=== PATIENT | male | born 1950 | race Caucasian/White ===

== ENCOUNTER 2017-02-21 11:29 | Emergency (ER) | payer OTHER ==
[2017-02-21 12:37] VITALS: BP 131/71
== END 2017-02-21 12:37 | disposition home or self-care (01) ==
LOC: ED 11:29
DX: B86 Scabies (principal)

== ENCOUNTER 2019-01-17 13:00 | Inpatient (IN) | payer OTHER ==
[~2019-01-17] VITALS: Ht 165.1 cm; Wt 114.3 kg
[2019-01-17 13:10] VITALS: Ht 165.1 cm; Wt 114.3 kg
--- NOTE | 2019-01-17 13:50 | NUR ---
PT IN H6 A/AX4 PLACED ONTO GUERNEY TILL BED AVAIL, AFTER LABS WERE DRAWN WE MOVED HIM TO ROOM 7 FOR FULL WORK UP PT REMAINS A/AX4 ON CM, DR FRANKS AT BEDSIDE
[2019-01-17 14:11] LABS: PLATELET COUNT 379 x10^3mcL (130-400)
--- NOTE | 2019-01-17 14:17 | NUR ---
DR FRANKS AT BEDSIDE FOR MD SILVERIO.
--- NOTE | 2019-01-17 14:23 | NUR ---
REPORT GIVEN TO DEV Suarez RN TO ASSUME CARE OF PT.
[2019-01-17 14:24] LABS: RED CELL DISTRIBUTION WIDTH 28.5 % (11.5-14.5)
[2019-01-17 14:36] LABS: ALBUMIN 3.5 g/dL (3.4-5.0); ALKALINE PHOSPHATASE 120 U/L (46-116); ALT/SGPT 18 U/L (16-63); AST/SGOT 18 U/L (15-37); CALCIUM 7.5 mg/dL (8.5-10.1); CARBON DIOXIDE 23.1 mmol/L (21-32); CHLORIDE SERUM 108 mmol/L (98-107); CREATININE SERUM 1.2 mg/dL (0.7-1.3); GFR1 > 60 mL/min; GLUCOSE SERUM 185 mg/dL (74-106); SODIUM SERUM 142 mmol/L (136-145)
[2019-01-17 14:38] LABS: TOTAL PROTEIN, SERUM 8.3 g/dL (6.4-8.2)
[2019-01-17 14:47] LABS: POTASSIUM SERUM 3.7 mmol/L (3.5-5.1)
[2019-01-17 14:48] LABS: UA SPECIFIC GRAVITY 1.025 (1.005-1.035); microscopic required? YES; urine erythrocyte TRACE (NEGATIVE)
[2019-01-17 15:00] LABS: BAND NEUTROPHIL 0 % (0-10); BASOPHIL 0 % (0-2); MONOCYTE 2 % (0-7); SEGMENTED NEUTROPHILS 77 % (37-75); rbc morphology (normal/abnorm) ABNORMAL (NORMAL)
[2019-01-17 15:04] LABS: AMPHETAMINE QUAL UR NONE DETECTED (See below)
[2019-01-17 15:16] LABS: CHOLESTEROL 64 mg/dL (<200); HDL CHOLESTEROL 20 mg/dL (40-60); LIPASE 121 IU/L (73-393); T4(THYROXINE) 8.8 ug/dL (4.7-13.3)
--- NOTE | 2019-01-17 15:41 | NUR ---
PER BLOOD BANKL BLOOD WILL BE READY IN APPROX 10 MINS.
--- NOTE | 2019-01-17 15:49 | NUR ---
PER DR FRANKS, PT'S PENDING BLOOD ADMIN TO BE COMPLETED UPON ADMISSTION TO [facility], PRIMARY RN DEV MADE AWARE.
--- NOTE | 2019-01-17 15:53 | NUR ---
PER DR FRANKS ADMITTING DR TO SIGN BLOOD TRANSFUSION CONSENT.
[2019-01-17] MEDS ORDERED: SYNTHROID25 MCG PO (16:14)
--- NOTE | 2019-01-17 16:28 | NUR ---
PT STANDING AT BEDSIDE FOR URINAL USE
--- NOTE | 2019-01-17 16:40 | NUR ---
REPORT GIVEN TO JOSÉ MIGUEL TRUJILLO RN
[2019-01-17 17:39] LABS: RED BLOOD CELLS 1.53 M/mm3 (4.52-5.90)
[2019-01-17 17:40] LABS: CHOLESTEROL/HDL RATIO 3.4
[2019-01-17 17:45] LABS: FREE T4 1.22 ng/dL (0.76-1.46); FREE THYROXINE INDEX 3.4 ug/dL (1.4-4.5); T4(THYROXINE) 9.4 ug/dL (4.7-13.3)
[2019-01-17 17:46] VITALS: BP 145/75
[2019-01-17 17:53] LABS: IRON 205 ug/dL (65-170); TOTAL IRON BINDING CAPACITY 217 ug/dL (250-450)
--- NOTE | 2019-01-17 17:56 | NUR ---
RECEIVED PT FROM ER, PT ADMIT FOR SEVERE ANEMIA, PT IS A/O X4, VERBAL RESPONSIVE, LUNG SOUND CLEAR BILATERAL, NO COUGH, DENY ANY SOB, PT REFUSED TO USE NASAL CANNAL AT THIS TIME, PT STATE I FEELT FINE. PO2 95% IN ROOM AIR, DENY ANY CHEST PAIN OR DISCOMFORT, BOWEL SOUND PRESENT ALL 4 QUADRANTS, NO DISTENTION, NO TENDER. PEDAL PULSE PRESENT BOTH FEET, WEAK, +3 EDEMA BLE. IV AT LEFT AC, AND RIGHT AC, NO LEAKING, NO INFILTRAITON. ALL ADLS ASSIST, ALL NEED MET, CALL LIGHT IN REACH, WILL CONTINUE TO MONITOR.
[2019-01-17 18:13] LABS: T3 TOTAL 0.79 ng/mL
--- NOTE | 2019-01-17 18:30 | NUR ---
RECEIVED PT FROM [facility] NURSE. PT SITTING AT BEDSIDE. PT DENIED DIZZINESS, WEAKNESS. PT REPORTED FREQUENTLY URGENCY WITH SMALL AMOUNT URINE. PT BREATHING ON RA, EVEN, UNLABORED, BUT PT REPORTED SOB INCREASING WITH ACTIVITY. O2 2L VIA NC APPLIED NEEDED. PT IS AWARE ABOUT BLOOD TRANSFUSION PLAN, BLOOD TRANSFUSION CONSENT SIGNED, STILL WAITING FOR TRANSFUSION ORDER. BLE SWELLING +3 EDEMA NOTED. IV SITE RAC / LAC SALINE LOCK AT THIS TIME. WILL ENOOSE PT'S CARE TO RECEIVING NURSE.
--- NOTE | 2019-01-17 19:36 | NUR ---
PT'S CARE IS ENDORSED TO RECEIVING NURSE. PT IS IN BATHROOM AND STATING HAVING TROUBLE TO URINATE. RECEIVING NURSE AWARE ABOUT IT AND WILL CONTINUE PT'S CARE.
[2019-01-17 20:20] VITALS: BP 145/75
--- NOTE | 2019-01-17 21:03 | NUR ---
PATIENT RECEIVED AWAKE, ALERT, ORIENTED X4. RESPIRATION EVEN AND UNLABORED, ON ROOM AIR. SALINE LOCK TO LT AC AND RT AC PATENT AND INTACT. C/O DIFFICULTY ON URINATION. DR ANDRADE MADE AWARE PERSONALLY. LBM 01/17/19. MILD GENERALIZED WEAKNESS. SCAB TO LT LE, MAGED. WILL CONTINUE TO MONITOR.
[2019-01-17 21:22] VITALS: BP 139/71
--- NOTE | 2019-01-18 00:40 | NUR ---
STARTED 1ST UNIT OF PRBC. PRE TRANSFUSION VITAL SIGNS FOLLOWS TEMP 99.6, BP 121/64, HR 80, RR 20, O2 SAT 95% WILL CONTINUE TO MONITOR FOR ANY TRANSFUSION REACTION.
--- NOTE | 2019-01-18 03:50 | NUR ---
COMPLETED 1ST UNIT OF PRBC. POST TRANSFUSION VITAL SIGNS FOLLOWS TEMP 98.7 HR 76, BP 132/69, RR 20, O2 SAT 98% NO ADVERSE REACTION NOTED. WILL CONTINUE TO MONITOR.
--- NOTE | 2019-01-18 04:10 | NUR ---
STARTED 2ND UNIT OF PRBC. PRETRANSFUSION VITAL SIGNS FOLLOWS TEMP 98.7, HR 76, BP 132/69, RR 20, O2 SAT 98% WILL MONITOR FOR ADVERSE REACTION.
[2019-01-18 05:30] VITALS: BP 116/66
--- NOTE | 2019-01-18 06:52 | NUR ---
PATIENT RESTING IN BED. RESPIRATION EVEN AND UNLABORED, ON ROOM AIR. ONGOING 2ND UNIT OF PRBC. IV SITE NO SIGN OF INFILTRATION. ASSISTED WITH NEEDS. SAFETY OBSERVED. PLACED BED IN THE LOWEST POSITION. PLACED CALL LIGHT WITHIN REACH AT ALL TIMES.
[2019-01-18 06:57] LABS: PLATELET COUNT 368 x10^3mcL (130-400)
[2019-01-18 07:12] LABS: CALCIUM 7.6 mg/dL (8.5-10.1); CARBON DIOXIDE 24.6 mmol/L (21-32); CHLORIDE SERUM 110 mmol/L (98-107); CREATININE SERUM 1.2 mg/dL (0.7-1.3); GFR1 > 60 mL/min; GLUCOSE SERUM 134 mg/dL (74-106); MAGNESIUM 2.1 mg/dL (1.8-2.4); SODIUM SERUM 143 mmol/L (136-145)
--- NOTE | 2019-01-18 07:16 | NUR ---
2ND UNIT OF PRBC COMPLETED. LATEST VITAL SIGNS BP 122/68, HR 69, RR 20, TEMP 98.6, O2 SAT 98% NO ADVERSE REACTION NOTED. WILL CONTINUE TO MONITOR.
[2019-01-18 07:41] LABS: RED CELL DISTRIBUTION WIDTH 24.5 % (11.5-14.5)
--- NOTE | 2019-01-18 09:15 | NUR ---
SPOKE TO DR. CHRIS PERTAINING TO LOW H/H COUNT CBC WAS DRAWN PRIOR TO COMPLETEION OF BLOOD TRANSFUSION THIS MORNING. DR. CHRIS MADE AWARE AND ORDERED REDRAW CBC.
[2019-01-18 09:31] VITALS: BP 149/69
--- NOTE | 2019-01-18 09:44 | NUR ---
A&OX4, FOLLOWS COMMANDS. DENIES CHEST PAIN. LUNG SOUNDS CTA BILATERALLY, NO SOB, ON RA, O2 SAT 96%. PERIPHERAL PULSES PALPABLE, +3 BILATERAL LOWER EXTREMITIES. NORMOACTIVE BOWEL SOUNDS, LAST BM 01/17. STRUGGLING WITH VOIDING DUE TO HISTORY OF ENLARGED PROSTATE. GENERALIZED WEAKNESS. LAC IV SITE CDI. RAC IV SITE CDI. COOPERATES WELL.
[2019-01-18 10:49] LABS: rbc morphology (normal/abnorm) ABNORMAL (NORMAL)
[2019-01-18 11:15] LABS: ATYPICAL LYMPH 1 %; BAND NEUTROPHIL 0 % (0-10); BASOPHIL 0 % (0-2); MONOCYTE 4 % (0-7); SEGMENTED NEUTROPHILS 33 % (37-75)
[2019-01-18 11:28] LABS: PLATELET COUNT 384 x10^3mcL (130-400)
--- NOTE | 2019-01-18 12:15 | NUR ---
DR. CHRIS AND MEDICAL TEAM IN FOR DAILY ROUNDS. MD MADE AWARE OF LATEST H+H 6.08/30. PER DR. CHRIS WILL ORDER ONE MORE UNIT OF PRBC TO BE TRANSFUSED. ALSO REMINDED OF PT'S C/O URINARY RETENTION. MD AND TEAM NOTIFIED PT OF US BLADDER/KIDNEY RESULTS. STATED THEY WOULD CONTACT UROLOGIST AND START PT ON FLOMAX. AWAITING FURTHER ORDERS.
[2019-01-18 12:22] LABS: rbc morphology (normal/abnorm) ABNORMAL (NORMAL); tear drop cell (dacryocyte) 1+
[2019-01-18 13:24] LABS: ATYPICAL LYMPH 0 %; BAND NEUTROPHIL 0 % (0-10); BASOPHIL 0 % (0-2); MONOCYTE 17.3 % (0-7); SEGMENTED NEUTROPHILS 76.5 % (37-75)
[2019-01-18 13:25] LABS: PLATELET MORPHOLOGY N
--- NOTE | 2019-01-18 14:37 | NUR ---
STARTED 1 UNIT PRBC ORDERED. VITAL SIGNS: T 98.6, HR 78, RR 16, BP 117/58, 02 96%. STARTED INFUSING AT 60 ML/HR TO LEFT AC IV. REVIEWED SIGNS AND SYMPTOMS OF ADVERSE REACTION IN PATIENT. PATIENT IS SLEEPY, AROUSABLE AT THIS TIME. WILL REMAIN AT BEDSIDE FOR 15 MINUTES TO MONITOR.
--- NOTE | 2019-01-18 14:54 | NUR ---
AFTER 15 MINS OF TRANSFUSION, NO ADVERSE EFFECTS NOTED. VITAL SIGNS: TEMP 98.2, HR 82, BP 126/61, RR 16, O2 94%. LEFT AC SITE CDI, AND NO SIGNS OF INFILTRATION. PATIENT IS AWAKE AND ISNTRUCTED TO CALL FOR ANY ADVERSE REACTIONS. CALL LIGHT WITHIN REACH.
--- NOTE | 2019-01-18 17:00 | NUR ---
NURSING CO-SIGN THE DOCUMENTATION ENTERED BY THE IP HAS BEEN REVIEWED. REVIEWED/CO-SIGNED BY: Amisha Carty DOCUMENTATION DONE BY: Sugey MEDINA
--- NOTE | 2019-01-18 17:30 | NUR ---
ONE UNIT PRBC COMPLETED. VS: TEMP 97.9, HR 74, BP 124/51, RR 14, O2 SAT 98%. NO ADVERSE REACTIONS, TOLERATED TRANSFUSION WELL. PATIENT REFUSED LASIX POST TRANSFUSION AT THIS TIME. PATIENT A&O, DOES NOT COMPLAIN OF DISCOMFORT, AND NO RESPIRATORY CHANGES. CALL LIGHT WITHIN REACH.
--- NOTE | 2019-01-18 18:31 | NUR ---
A&OX4, FOLLOWS COMMANDS. DENIES CHEST PAIN. PERIPHERAL PULSES PALPABLE, WITH NONPITTING EDEMA BLE. LUNG SOUNDS REMAIN CTA BILATERALLY, ON RA, O2 SATS 98%. NORMOACTIVE BOWEL SOUNDS X4. REMAINS HAVING DIFFICULTY URINATING. RECEIVED FLOMAX TODAY. RECEIVED A BLOOD TRANSFUSION PER MD ORDER FOR H&H OF 6.08/30. PATIENT VITAL SIGNS REMAIN STABLE PRE, DURING AND POST TRANSFUSION. PATIENT COOPERATES WELL AND DENIES ANY PAIN OR DISCOMFORT.
--- NOTE | 2019-01-18 19:59 | NUR ---
PATIENT RECEIVED AWAKE, ALERT, ORIENTED X4 IN BED. RESPIRATION EVEN AND UNLABORED, ON ROOM AIR. ONGOING NS AT TKO ON THE RT AC AND SALINE LOCK AT THE LT AC. +3 EDEMA TO BLE. LBM 01/17/19. C/O DIFFICULTY URINATION. GENERALIZED WEAKNESS. SCAB TO LLE. DENIES PAIN AT THIS TIME. WILL CONTINUE TO MONITOR.
[2019-01-18 21:19] VITALS: BP 128/65
[2019-01-19 04:56] VITALS: BP 122/59
--- NOTE | 2019-01-19 05:53 | NUR ---
PATIENT RESTING IN BED. RESPIRATION EVEN AND UNLABORED, ON ROOM AIR. IV SITE TO RT ANTECUBITAL AND LT ANTECUBITAL AREA PATENT AND INTACT. NO SIGN OF HYPO/HYPERGLYCEMIA. ASSISTED WITH NEEDS. SAFETY OBSERVED. PLACED BED IN THE LOWEST POSITION. PLACED CALL LIGHT WITHIN REACH AT ALL TIMES.
[2019-01-19 06:09] LABS: BASOPHIL % 0.2 % (0-2); PLATELET COUNT 335 x10^3mcL (130-400)
[2019-01-19 06:39] LABS: CALCIUM 8.1 mg/dL (8.5-10.1); CARBON DIOXIDE 26.2 mmol/L (21-32); CREATININE SERUM 1.3 mg/dL (0.7-1.3); MAGNESIUM 2.4 mg/dL (1.8-2.4); PHOSPHOROUS 3.2 mg/dL (2.5-4.9); POTASSIUM SERUM 3.9 mmol/L (3.5-5.1)
[2019-01-19 07:23] LABS: RED CELL DISTRIBUTION WIDTH 22.5 % (11.5-14.5)
--- NOTE | 2019-01-19 07:36 | NUR ---
PT A/A, SITTING UP IN BED. BREATHING EQUAL/UNLABORED ON RA. NO SIGNS OF DISTRESS OR PAIN NOTED. IVF RUNNING AT 5ML/HR. NO REDNESS/ SWELLING TO IV SITES. PT C/O DIFFICULTY URINATING, AWAITING CONSULT. BED IN LOW POSITION, CALL LIGHT IN REACH. FALL/ SAFETY PRECAUTIONS IN PLACE. WILL CONTINUE TO MONITOR
[2019-01-19 08:17] VITALS: BP 131/66
[2019-01-19 09:46] LABS: rbc morphology (normal/abnorm) ABNORMAL (NORMAL)
[2019-01-19 12:14] VITALS: BP 125/63
[2019-01-19 13:27] VITALS: BP 116/48
--- NOTE | 2019-01-19 13:31 | NUR ---
PT BLOOD TRANSFUSION STARTED. NO ACUTE DISTRESS. VSS. WILL CONTINUE TO MONITOR
--- NOTE | 2019-01-19 13:44 | NUR ---
PT DONE WITH FIRST 15 MIN OF TRANSFUSION. PT VSS STABLE WITH NO REACTION NOTED. INCREASED TRASNFUSION TO 100ML/HR. WILL CONTINUE TO MONITOR
--- NOTE | 2019-01-19 14:27 | NUR ---
PHYSICAL THERAPY NOTE ATTEMPTED FOR PHYSICAL THERAPY EVALUATION. PATIENT RECEIVING BLOOD TRANSFUSION. RESIDENT PHYSICIAN AWARE. WILL ATTEMPT EVALUATION TOMORROW 01/20/19.
[2019-01-19 16:23] VITALS: BP 125/64
--- NOTE | 2019-01-19 16:36 | NUR ---
PT BLOOD TRANSFUSION COMPLETE. VSS. NO ADVERESE REACTIONS NOTED. WILL CONTINUE TO MONITOR
--- NOTE | 2019-01-19 18:46 | NUR ---
PT SITTING IN BED, A/A, ORIENTED X 4. BREATHING EQUAL/ UNLABORED ON RA. IVF RUNNING AT 10 ML/HR. NO REDNESS/ SWELLING TO IV SITE. BOCANEGRA FLOWING TO GRAVITY WITH VIRIDIANA URINE. NO C/O PAIN, DISTRESS AT THIS TIME. BED IN LOW POSITION, CALL LIGHT IN REACH. FALL/ SAFETY PRECAUTIONS IN PLACE. WILL ENDORSE TO ON COMING NURSE
[2019-01-19 19:20] VITALS: BP 123/62
--- NOTE | 2019-01-19 19:40 | NUR ---
RECIEVED PT IN NO ACUTE DISTRESS. AOX4. MED SURG. BREATHING E/U ON RA. DENIES SOB. PULSES PALPABLE. EDEMA TO BLE. BOCANEGRA CATHETER DRAINING VIRIDIANA COLOR URINE. INGUINAL HERNIA NOTED. DRY SCAB TO LLE, OTHERWISE SKIN INTACT. DENIES PAIN. IV TO RAC, PATENT. BED IN LOWEST POSITION, 2 SIDE RAILS UP, CALL LIGHT IN REACH. INSTRUCTED TO CALL FOR ASSISTANCE.
--- NOTE | 2019-01-20 01:30 | NUR ---
IV TO RAC LEAKING, D/C INTACT. NEW IV ACCESS ESTABLISHED TO LFA 22G. NO ACUTE DISTRESS NOTED. WILL CONTINUE TO MONITOR.
[2019-01-20 04:38] VITALS: BP 133/65
[2019-01-20 06:30] LABS: CARBON DIOXIDE 24.8 mmol/L (21-32); CHLORIDE SERUM 104 mmol/L (98-107); CREATININE SERUM 1.2 mg/dL (0.7-1.3); GFR1 > 60 mL/min; GLUCOSE SERUM 121 mg/dL (74-106); MAGNESIUM 2.3 mg/dL (1.8-2.4); PHOSPHOROUS 3.6 mg/dL (2.5-4.9); POTASSIUM SERUM 3.6 mmol/L (3.5-5.1); SODIUM SERUM 141 mmol/L (136-145)
--- NOTE | 2019-01-20 07:00 | NUR ---
NO C/O SOB OVERNIGHT. NO ACUTE DISTRESS NOTED. NO ACUTE CHANGES. WILL ENDORSE TO ONCOMING RN.
--- NOTE | 2019-01-20 07:26 | NUR ---
PT SITTING UP IN BED WITH EYES CLOSED. AROUSABLE TO VOICE. BREATHING EQUAL/ UNLABORED ON RA. NO C/O SOB OR PAIN AT THIS TIME. IVF RUNNING AT 10 ML/HR. NO REDNESS/ SWELLING TO IV SITE. BOCANEGRA FLOWING TO GRAVITY WITH VIRIDIANA URINE. BED IN LOW POSITION, CALL LIGHT IN REACH, FALL PRECAUTIONS IN PLACE. WILL CONTINUE TO MONITOR
[2019-01-20 07:38] LABS: BASOPHIL % 0.1 % (0-2); PLATELET COUNT 302 x10^3mcL (130-400)
[2019-01-20 07:52] LABS: RED CELL DISTRIBUTION WIDTH 22.9 % (11.5-14.5)
[2019-01-20 08:40] LABS: rbc morphology (normal/abnorm) ABNORMAL (NORMAL); tear drop cell (dacryocyte) 1+
[2019-01-20 08:53] VITALS: BP 130/63
--- NOTE | 2019-01-20 12:11 | NUR ---
PT SITTING UP IN BED, A/A. BREATHING EQUAL/ UNLABORED ON RA. NO ACUTE DISTRESS/ PAIN AT THIS TIME. IV ABX RUNNING AT 100ML/ HR. NO REDNESS/ SWELLING TO IV SITE. BOCANEGRA FLOWING TO GRAVITY WITH DARK VIRIDIANA URINE. BED IN LOW POSITION, CALL LIGHT IN REACH, SAFETY/ FALL PRECAUTIONS IN PLACE. WILL CONTINUE TO MONITOR
[2019-01-20 16:30] VITALS: BP 138/70
--- NOTE | 2019-01-20 17:19 | NUR ---
OBCANEGRA CARE DONE. BOCANEGRA FLOWING TO GRAVITY WITH VIRIDIANA URINE. WILL CONTINUE TO MONITOR
--- NOTE | 2019-01-20 18:40 | NUR ---
PT SITTING UP IN BED, A/A. BREATHING EQUAL/ UNLABORED ON RA. NO ACUTE DISTRESS/ PAIN AT THIS TIME. IVF RUNNING AT 10 ML/HR. NO REDNESS/ SWELLING TO IV SITE. BOCANEGRA FLOWING TO GRAVITY WITH DARK VIRIDIANA URINE. BED IN LOW POSITION, CALL LIGHT IN REACH, FALL/ SAFETY PRECAUTIONS IN PLACE. WILL ENDORSE TO ON COMING NURSE
--- NOTE | 2019-01-20 19:30 | NUR ---
RECIEVED PT IN NO ACUTE DISTRESS. AOX4. MED SURG. BREATHING E/U ON RA. DENIES SOB. PULSES PALPABLE. EDEMA TO BLE. BOCANEGRA CATHETER DRAINING VIRIDIANA COLOR URINE. INGUINAL HERNIA NOTED. DRY SCAB TO LLE, OTHERWISE SKIN INTACT. DENIES PAIN. IV TO LFA, PATENT. BED IN LOWEST POSITION, 2 SIDE RAILS UP, CALL LIGHT IN REACH. INSTRUCTED TO CALL FOR ASSISTANCE.
[2019-01-20 21:00] VITALS: BP 130/57
--- NOTE | 2019-01-21 02:15 | NUR ---
RESTING WITH EYES CLOSED. BREATHING E/U. NO ACUTE DISTRESS NOTED. WILL CONTINUE TO MONITOR.
[2019-01-21 05:20] VITALS: BP 136/70
[2019-01-21 06:10] LABS: CALCIUM 7.9 mg/dL (8.5-10.1); CARBON DIOXIDE 23.9 mmol/L (21-32); CHLORIDE SERUM 106 mmol/L (98-107); CREATININE SERUM 1.1 mg/dL (0.7-1.3); GFR1 > 60 mL/min; GLUCOSE SERUM 119 mg/dL (74-106); POTASSIUM SERUM 3.9 mmol/L (3.5-5.1); SODIUM SERUM 139 mmol/L (136-145)
[2019-01-21 06:11] LABS: BASOPHIL % 0.3 % (0-2); PLATELET COUNT 280 x10^3mcL (130-400)
[2019-01-21 07:02] LABS: RED CELL DISTRIBUTION WIDTH 21.4 % (11.5-14.5)
[2019-01-21 07:04] LABS: rbc morphology (normal/abnorm) ABNORMAL (NORMAL)
[2019-01-21 07:05] LABS: tear drop cell (dacryocyte) 1+
--- NOTE | 2019-01-21 07:30 | NUR ---
A&OX4, COOPERATES WELL. MED-SURG PATIENT, DENIES CHEST PAIN. PERIPHERAL PULSES PALPABLE, WITH +3 PITTING EDEMA. LUNG SOUNDS CTA BILATERALLY, ON RA, 97%. REMAINS W/ BOCANEGRA CATHETER DRAIINAGE DARK VIRIDIANA URINE. ABLE TO AMBULATE W/ ASSIST. GENERALIZED WEAKNESS. NORMOACTIVE BOWEL SOUNDS X4. SCAB LLE PRESENT, CDI. LFA IV SITE CDI. DENIES ANY PAIN OR DISCOMFORT.
[2019-01-21 08:41] VITALS: BP 121/56
[2019-01-21 16:49] VITALS: BP 124/56
--- NOTE | 2019-01-21 18:56 | NUR ---
PATIENT IS A&0X4. COOPERATES WELL. PATIENT NEEDS HAVE BEEN MET THROUGHOUT THE DAY. REMAINS ON RA W/ NO SIGNS OF APPARENT DISTRESS. BOCANEGRA CATHETER DRAINING OUT DARK VIRIDIANA URINE. PLANS FOR TRANSFER TO SNF.
--- NOTE | 2019-01-21 18:57 | NUR ---
CALLED TO [facility] AND SPOKE W/ KYLEE AND PATIENT BE POSTING CLERK AT 2300.
[2019-01-21 19:05] VITALS: BP 124/56
[2019-01-21] MEDS ORDERED: ZOS3PM IV (19:23)
--- NOTE | 2019-01-21 19:30 | NUR ---
RECIEVED PATIENT AT START OF SHIFT A/O X4. NO SOB ON RA. DENIES PAIN. IV TO LFA INFUSING WITHOUT ERYTHEMA OR INFILTRATION. BOCANEGRA IN PLACE DRAINING BLOOD TINGED URINE. PLAN IS FOR PATIENT TO BE TRANSFERRED TO [facility] AT 2300.
--- NOTE | 2019-01-21 19:55 | NUR ---
CALLED [facility]. SPOKE TO RN REGARDING THE LATE TRANSFER. SHE STATE THE PT IS NOT IN THE SYSTERM, NEED TO TALK TO THEIR CLINICAL RESEARCH SPECIALIST TO CONFIRM AND WILL CALL BACK.
[2019-01-21 21:10] VITALS: BP 130/65
--- NOTE | 2019-01-22 01:30 | NUR ---
PATIENT TRANSFERRED TO [facility] AT THIS TIME. IV TO RIGHT HAND SALINE LOCKED AND PATENT. BOCANEGRA DRAINING BLOOD TINGED URINE. NO SOB OR DISTRESS. NO PAIN. ALL BELONGINGS WITH PATIENT. PATIENT LEFT FLOOR AT THIS TIME.
== END 2019-01-22 01:30 | DRG 177 ==
LOC: ED 13:00 → MU 16:23
PROVIDERS: Emergency Medicine; Family Medicine; ADMIT Internal Medicine
DX: J69.0 Pneumonitis due to inhalation of food and vomit (principal); J96.00 Acute respiratory failure, unspecified whether with hypoxia or hypercapnia; J44.1 Chronic obstructive pulmonary disease with (acute) exacerbation; J90 Pleural effusion, not elsewhere classified; Z68.41 Body mass index [BMI] 40.0-44.9, adult; D64.9 Anemia, unspecified; R33.9 Retention of urine, unspecified; E87.8 Other disorders of electrolyte and fluid balance, not elsewhere classified; E83.51 Hypocalcemia; E05.90 Thyrotoxicosis, unspecified without thyrotoxic crisis or storm
CPT/HCPCS: 76770; 82962; 83880; 84439; 97116-GP; C9113; G0378; G0480; J1815; J1940; J2543; J7030; J7040; J7050; J7620; P9016; Q0092; Q0163

== ENCOUNTER 2019-01-27 15:59 | Inpatient (IN) | payer OTHER ==
[~2019-01-27] VITALS: Ht 165.1 cm; Wt 113.4 kg
[~2019-01-27 15:59] MED LIST: SYNTHROID25 MCG PO; ZOS3PM IV
[2019-01-27 16:06] VITALS: Ht 165.1 cm; Wt 113.4 kg
--- NOTE | 2019-01-27 16:14 | NUR ---
PT BIB AMBULANCE FOR BLOOD IN THE URINARY CATHETER AND HG OG 6.4. CLAIMS BLOOD IN CATHETER 4 DAYS. PT CAME FROM REHAB FACILITY. UPON ARRIVAL PT DENIES PAIN IS ALERT AND ORIENTED WITH NO DISTRESS NOTED. BRIGHT RED BLOOD PRESENT IN CATHETER AT THIS TIME. PT PLACED ON 02 2 LITERS EN ROUTE BY EMS FOR DECREASE SATURATION. UPON ARRIVAL ON 2L NC PT IS 98 % WITH NO DISTRESS NOTED. AWAITING MD SILVERIO
--- NOTE | 2019-01-27 16:45 | NUR ---
DR YOUNGER AT BEDSIDE FOR EVAL
[2019-01-27 17:25] LABS: PLATELET COUNT 304 x10^3mcL (130-400)
[2019-01-27 17:32] LABS: CALCIUM 8.2 mg/dL (8.5-10.1); CARBON DIOXIDE 27.9 mmol/L (21-32); CREATININE SERUM 1.3 mg/dL (0.7-1.3); POTASSIUM SERUM 4.1 mmol/L (3.5-5.1); RED CELL DISTRIBUTION WIDTH 21.5 % (11.5-14.5)
[2019-01-27 17:39] LABS: ALBUMIN 3.5 g/dL (3.4-5.0); BILIRUBIN TOTAL 0.9 mg/dL (0.20-1.00); TOTAL PROTEIN, SERUM 8.5 g/dL (6.4-8.2)
[2019-01-27 18:01] LABS: BAND NEUTROPHIL 0 % (0-10); BASOPHIL 0 % (0-2); MONOCYTE 2 % (0-7); SEGMENTED NEUTROPHILS 75 % (37-75); rbc morphology (normal/abnorm) ABNORMAL (NORMAL)
[2019-01-27 18:10] LABS: UA SPECIFIC GRAVITY 1.015 (1.005-1.035); microscopic required? YES; urine erythrocyte 3+ (NEGATIVE)
--- NOTE | 2019-01-27 18:46 | NUR ---
PT CONSENTED FOR BLOOD
--- NOTE | 2019-01-27 19:07 | NUR ---
REPORT GIVEN TO CATHERINE CYTOLOGY TECHNOLOGIST ALEXA
--- NOTE | 2019-01-27 19:07 | NUR ---
RECEIVED REPORT FROM DEV MOTA RN, I WILL ASSUME FURHTER CARE OF THIS PATIENT.
--- NOTE | 2019-01-27 19:25 | NUR ---
INVENTORY CLERK AT THE BEDSIDE.
[2019-01-27 19:29] LABS: IRON 133 ug/dL (65-170)
[2019-01-27 19:30] LABS: RED BLOOD CELLS 2.23 M/mm3 (4.52-5.90)
[2019-01-27 19:31] LABS: TOTAL IRON BINDING CAPACITY 226 ug/dL (250-450)
[2019-01-27 19:41] LABS: AMPHETAMINE QUAL UR NONE DETECTED (See below)
--- NOTE | 2019-01-27 19:45 | NUR ---
PT IN POSITION OF COMFORT, NO DISTRESS NOTED, PT IS AAOX4, RESP E/U, EDEMA NOTED TO BILATERAL LOWER EXTREMITIES, PT DENIES ANY PAIN AT THIS TIME. COUGHING NOTED AT THIS TIME, LUNG SANDOVAL ALL CLEAR TO AUSCULTATION. SKIN INTACT, WARM AND PALE. RED URINE NOTED TO BOCANEGRA CATHETERS. PT ON FULL CM, NSR, VSS, WILL CONT TO MONITOR.
--- NOTE | 2019-01-27 20:44 | NUR ---
REPORT GIVEN TO JIMBO ON TELEL UNIT WHO WILL ASSUME FURHTER CARE OF THIS PATIENT.
--- NOTE | 2019-01-27 20:48 | NUR ---
PACKED RED BLOOD CELLS INFUSING AT 60ML/HR INITIAL VITALS: TEMP: 98.2F ORAL, PULSE: 74, RESP 14, BLOOD PRESSURE:116/59, SPO2 @96% ON 2L OXYGEN VIA NC VERIFIED BLOOD TRANFUSION WITH ISABEL LIU AT THE BEDSIDE.
--- NOTE | 2019-01-27 21:03 | NUR ---
15MINUTES POST TRANSFUSION START. RBPC INFUSING, NO INFILTRATION NOTED OR PAIN TO IV SITE. PT IS AAOX4, NO DISTRESS NOTED, NO SOB, RESP E/U, SKIN IS JAUNDICE, WARM AND DRY. VITALS: TEMP: 98.5F ORAL, PULSE: 75 RESP 14 BLOOD PRESSURE: 132/58 SPO2 % 99 ON 2L OXYGEN VIA NC. RBPC INFUSION RATE INCREASED TO 280ML/HR PER MD ORDER TO TRANFUSE WITHIN 1 HOUR.
--- NOTE | 2019-01-27 21:16 | NUR ---
RECEIVED PT VIA [email or web address] FROM E/D, ACCOMPANIED BY RN AND TRANSPORTER. PT A/A/O X 4, CALM, COOPERATIVE; NOTED JAUNDICE SCLERA OU AND GENERALIZED BODY, AND DRY SKIN TO BLE. AMBULATORY, NO GAIT OR BALANCE IMPAIRMENT NOTED WHEN WALKING FROM GURNEY TO BED. ON TELE # 13, HR 78, SR + 1ST DEG AVB, DENIES CHEST PAIN OR DISCOMFORT AT THIS TIME. ROMMEL RADIAL PULSES PRESENT, ROMMEL PEDAL PULSES WEAK, BLE +1 PITTING EDEMA, CAP REFILL < 3 SECS, SCD BY BEDSIDE. LUNGS CTAB, CHEST RISING EVENLY, 2LNC, 97%, INTERMITTENT DRY COUGH. F/C NURSING TECHN, DRAINING LAYNE RED URINE X 7 DAYS, DENIES DYSURIA. IV SITES RFA 20G, CDI, AND LFA 22G, CDI. ORIENTED PT TO ROOM, BED CONTROLS, CALL ROLI SYSTEM. SIDE RAILS UP X 2, BED IN LOW POSITION. WILL ENDORSE TO ALEXA DUONG.
--- NOTE | 2019-01-27 21:20 | NUR ---
BLOOD TRANSFUSION IN PROGRESS. NO DISTRESS NOTED.
[2019-01-27 21:41] VITALS: BP 127/62
[2019-01-27 23:30] VITALS: BP 128/71
--- NOTE | 2019-01-27 23:35 | NUR ---
BLOOD TRANSFUSION (1 UNIT) COMPLETED. BP 128/71 HR 76 RR 16 TEMP 98.9 O2 SAT 98 ON 2L NC. NO ADVERSE REACTION. DR ANDRADE MADE AWARE. LAB DRAW ORDERED.
[2019-01-28] VITALS (10 sets, daily range): BP systolic 111–124; BP diastolic 49–68
[2019-01-28 00:43] LABS: PLATELET COUNT 311 x10^3mcL (130-400)
[2019-01-28 01:16] LABS: RED CELL DISTRIBUTION WIDTH 21.4 % (11.5-14.5)
[2019-01-28 01:21] LABS: BAND NEUTROPHIL 0 % (0-10); BASOPHIL 0 % (0-2); MONOCYTE 5 % (0-7); SEGMENTED NEUTROPHILS 75 % (37-75)
[2019-01-28 01:22] LABS: rbc morphology (normal/abnorm) ABNORMAL (NORMAL)
--- NOTE | 2019-01-28 02:30 | NUR ---
PT RESTING WITH EYES CLOSED. NO DISTRESS NOTED. CALL LIGHT WITHIN REACH. WILL CONTINUE TO MONITOR.
--- NOTE | 2019-01-28 05:36 | NUR ---
PT RESTED IN INTERVALS THROUGHOUT SHIFT. NO SOB ON ROOM AIR. NO C/O PAIN. NO DISTRESS NOTED. IV TO RFA AND LFA, PATENT AND INTACT. SAFETY MEASURES MAINTAINED. ALL NEEDS ATTENDED TO. CALL LIGHT WITHIN REACH. WILL ENDORSE CONTINUITY OF CARE TO DAY SHIFT RN.
[2019-01-28 07:08] LABS: PLATELET COUNT 327 x10^3mcL (130-400)
--- NOTE | 2019-01-28 07:25 | NUR ---
RECEIVED HAND OFF REPORT FROM NIGHT NURSE, PATIENT FOUND ALERT PACING AROUND ROOM. WHEN QUESTIONS PATIENT IS ORIENTED TO PERSON, PLACE, AND TIME BUT CONFUSED ABOUT EVENTS. PACING AROUND ROOM WITH GUARDED AFFECT. SITTER PRESENT IN DOORWAY OF ROOM. ENCOURAGED PATIENT TO REST AND SIT IN ROOM. PATIENT STATING THAT HE IS WAITING FOR HIS MOTHER TO COME AND TAKE HIM HOME. REINFORCED TO PATIENT THAT HE IS ON A 5150 HOLD. PATIENT HAD EPISODE OF SPEAKING TO SOMEONE NOT PRESENT IN ROOM.INCREASING AGITATION AT TIMES
--- NOTE | 2019-01-28 07:31 | NUR ---
RECEIVED HAND OFF REPORT FROM NIGHT NURSE. PATIENT ALERT AND ORIENTED X4, SITTING ON SIDE OF BED, NO REPORTS OF PAIN, ON ROOM AIR, DRY COUGH NOTED. PATIENT ADMITTED DUE TO ANEMIA, 1 BLOOD TRANSFUSION GIVEN IN ED. INFORMED PATIENT OF PLAN OF CARE AND AWAITING VISIT FROM DOCTOR. CALL LIGHT WITHIN REACH, WILL CONTINUE TO MONITOR
[2019-01-28 07:47] LABS: RED CELL DISTRIBUTION WIDTH 21.2 % (11.5-14.5)
[2019-01-28 08:07] LABS: CALCIUM 8.2 mg/dL (8.5-10.1); CARBON DIOXIDE 28.1 mmol/L (21-32); CHLORIDE SERUM 105 mmol/L (98-107); CREATININE SERUM 1.2 mg/dL (0.7-1.3); GFR1 > 60 mL/min; GLUCOSE SERUM 101 mg/dL (74-106); MAGNESIUM 1.8 mg/dL (1.8-2.4); PHOSPHOROUS 3.6 mg/dL (2.5-4.9); POTASSIUM SERUM 3.8 mmol/L (3.5-5.1); SODIUM SERUM 141 mmol/L (136-145)
--- NOTE | 2019-01-28 09:36 | NUR ---
DR GEORGE AND DR ROBERTS ROUNDED ON PATIENT, NEW ORDERS ENTERED FOR PRBC TRANSFUSIONG X2. CONSENT SIGNED IN ED. AWAITING CALL FROM BLOOD BANK FOR BLOOD AVAILABILITY
[2019-01-28 10:24] LABS: BAND NEUTROPHIL 4 % (0-10); BASOPHIL 0 % (0-2); MONOCYTE 17 % (0-7); MYELOCYTE 1 % (0-2); SEGMENTED NEUTROPHILS 65 % (37-75)
[2019-01-28 10:25] LABS: PLATELET MORPHOLOGY PLATELETS NORMAL; rbc morphology (normal/abnorm) ABNORMAL (NORMAL)
--- NOTE | 2019-01-28 10:43 | NUR ---
RECEIVED CALL FROM BLOOD BANK ASKING TO CANCEL TYPE AND SCREEN ORDER FOR THIS PATIENT DUE TO TYPE AND SCREEN DONE YESTERDAY.
--- NOTE | 2019-01-28 13:33 | NUR ---
PATIENT SITTING UP EATTING LUNCH, PATIENT HAD JUST WALKED WITH PT. NO ASSISTANCE NEEDED. INFOMRED PATIENT THAT WE ARE STILL AWAITING CALL FROM BLOOD BANK FOR BLOOD AVAILABILITY.
--- NOTE | 2019-01-28 15:32 | NUR ---
STARTED TRANSFUSION OF PRBC, BLOOD VERIFIED BY MYSELF AND HEAVENLY LIU. PRETRANSFUSION VITAL SIGNS STABLE. PATIENT EDCUATED ABOUT TRANSFUSION RECATIONS. WILL REMAIN IN ROOM WITH PATIENT FOR 15 MINUTES OF TRANSFUSION
--- NOTE | 2019-01-28 15:49 | NUR ---
AFTER 15 MINUTES OF PRBC TRANSFUSION THERE IS NO INDICATION OF TRANSFUSION REACTION. PATIENT REEDUCATED ABOUT S/S OF TRANSFUSION REACTION. VITAL SIGNS STABLE, RATE INCREASED TO TRANSFUSE OVER 3 HOURS. WILL CONTINUE TO MONITOR
--- NOTE | 2019-01-28 18:49 | NUR ---
BLOOD FINISHED TRANSFUSING AT 1835, 300MLS TOTAL. NO SIGNS OF TRANSFUSION REACTION. VITAL SIGNS STABLE. ADMINISTERED PO TYLENOL, BENADRYL AND LASIX PER ORDER. WILL ENDORSE SECONDS UNIT TO ELECTRICIAN CRANE MAINTENANCE
--- NOTE | 2019-01-28 19:20 | NUR ---
RECEIVED REPORT FROM TATI LIU. PT AAOX4 AND SITTING UP IN BED. V/S ARE T: 98.3F, RR: 20, BP: 115/50, HR: 71, 97% O2 SAT ON RA. PT DENIES ANY HEADACHE OR DIZZINESS AT THIS TIME. PT IS ON TELE #13 WITH 1ST DEGREE HEART BLOCK. PT DENIES ANY CHEST PAIN OR DISCOMFORT AT THIS TIME. PT PULSES ARE PALPABLE. PT PEDAL PULSES ARE DETECTABLE AND WEAK. PT HAS EDEMA +1 BLE. PT HAS BILATERAL SCDS. PT BREATHING IS EVEN AND UNLABORED. PT LUNG SOUNDS ARE CTA ON RA. PT HAS DRY UNPRODUCTIVE COUGH. PT DENIES ANY SOB OR RESPIRATORY DISTRESS AT THIS TIME. PT HAS NORMOACTIVE BOWEL SOUNDS X4. ABD IS ROUND AND SOFT. PT DENIES ANY N/V AT THIS TIME. LBM: 01/27, FORMED. PT HAS BOCANEGRA CATH IN PLACE DRAINING LAYNE RED URINE. PT IS AMBULATORY AND ABLE TO REPOSITION SELF IN BED. PT HAS JAUNDICE SKIN AND SCLERA IN BOTH EYES. PT IVS ARE PATENT AND WNL. NO S/S OF REDNESS, SWELLING, OR PAIN AT THIS TIME. CALL LIGHT WITHIN REACH. BED IN LOWEST POSITION. WILL CONTINUE TO MONITOR.
--- NOTE | 2019-01-28 20:28 | NUR ---
CALLED DR. ANDRADE AND VERIFIED BLOOD ORDERS.1 UNIT GIVEN IN ER YESTERDAY.1 JUST COMPLETED BY AM NURSE AT 1800.OK NOT TO GIVE ANOTHER BLOOD AVAILABLE IN BLOOD BANK AND WILL ORDER CBC TONIGHT AT 2100 TO CHECK CURRENT H/H LEVEL.
--- NOTE | 2019-01-28 21:26 | NUR ---
MADE DR. ANDRADE AWARE OF PT NONPRODUCTIVE COUGH. AWAITING ORDERS.
[2019-01-28 21:30] LABS: PLATELET COUNT 309 x10^3mcL (130-400)
[2019-01-28 21:40] LABS: RED CELL DISTRIBUTION WIDTH 19.6 % (11.5-14.5)
--- NOTE | 2019-01-28 21:52 | NUR ---
MADE DR. ANDRADE AWARE OF CRITICAL VALUES: HGB [address] ANDRADE, NO NEED FOR PRBC BLOOD TRANSFUSION AT THIS TIME.
[2019-01-28 22:21] LABS: BAND NEUTROPHIL 0 % (0-10); BASOPHIL 0 % (0-2); MONOCYTE 13 % (0-7); SEGMENTED NEUTROPHILS 68 % (37-75)
[2019-01-28 22:23] LABS: rbc morphology (normal/abnorm) ABNORMAL (NORMAL)
--- NOTE | 2019-01-29 00:20 | NUR ---
ROUNDED ON PT. PT AWAKE AND SITTING UP ON SIDE OF BED. PT DENIES ANY DIZZINESS OR HEADACHE. PT DENIES ANY S/S OF PAIN AT THIS TIME. CALL LIGHT WITHIN REACH. BED IN LOWEST POSITION. WILL CONTINUE TO MONITOR.
--- NOTE | 2019-01-29 04:25 | NUR ---
ROUNDED ON PT. PT LAYING DOWN AND SLEEPING, BUT EASILY AROUSABLE. PT DENIES ANY S/S OF PAIN AT THIS TIME. PT BREATHING IS EVEN AND UNLABORED. CALL LIGHT WITHIN REACH. BED IN LOWEST POSITION. SIDE RAILS X2 UP. WILL CONTINUE TO MONITOR.
[2019-01-29 05:17] VITALS: BP 110/69
[2019-01-29 05:21] VITALS: BP 113/52
--- NOTE | 2019-01-29 05:22 | NUR ---
PT SLEPT THROUGHOUT THE NIGHT. PT WAS EASILY AROUSABLE WHEN ROUTINE MEDS WERE ADMINISTERED. PT COMPLIED WITH NURSING CARE THROUGHOUT SHIFT. COMFORT AND SAFETY MEASURES MAINTAINED. ALL NEEDS AND CONCERNS ADDRESSED. PT DENIES SOB AND BREATHING IS EVEN AND UNLABORED ON 1L O2 N/C. PT DENIES S/S OF CHEST PAIN OR PRESSURE. BED IN LOWEST POSITION. CALL LIGHT WITHIN REACH. WILL ENDORSE CARE TO DAY SHIFT NURSE.
--- NOTE | 2019-01-29 05:27 | NUR ---
PT SLEPT THROUGHOUT MOST OF THE NIGHT, BUT EASILY AROUSABLE. PT COMPLIED WITH NURSING CARE THROUGHOUT SHIFT. PT DENIES ANY S/S OF PAIN DURING THE SHIFT. NO ACUTE DISTRESS NOTED DURING THE SHIFT. COMFORT AND SAFETY MEASURES MAINTAINED. ALL NEEDS AND CONCERNS ADDRESSED. NO SOB NOTED AT THIS TIME. PT BREATHING IS EVEN AND UNLABORED ON RA. BED IN LOWEST POSITION. CALL LIGHT WITHIN REACH. WILL ENDORSE CARE TO DAY SHIFT NURSE.
--- NOTE | 2019-01-29 06:38 | NUR ---
DR. ANDRADE MADE ROUNDS ON THE UNIT. DR. ANDRADE MADE AWARE OF POSITIVE NITRITES IN UA AND COUGH SUPPRESANT. AWAITING ORDERS.
[2019-01-29 06:47] LABS: PLATELET COUNT 325 x10^3mcL (130-400)
--- NOTE | 2019-01-29 07:19 | NUR ---
ENDORSED CARE TO ANASTASIYA LIU. ALL QUESTIONS AND CONCERNS ANSWERED.
--- NOTE | 2019-01-29 07:30 | NUR ---
PT ENDORSE TO ME THIS MORNING, SITTING UP IN BED. AA/O X4. BREATHING EVEN AND UNLABORED ON RA, NO ACUTE RESP DISTRESS OR SOB NOTED. C/O DRY COUGH, MADE AWARE AWAITING ORDER FOR COUGH MED. TELE 13 1ST DEG NOTED, HR 81 NOTED ON MONITOR. DENIES ANY CP OR PRESSURE. ORDER ENTRY TECHNICIAN AT BEDSIDE. PULSES WEAK TO BOTH PEDAL AND EDEMA NOTED BLE +1. BOWEL SOUNDS ACTIVE IN ALL FOUR QUADS, LAST BM THIS AM, LARGE PER PT. BOCANEGRA INTACT AND PATENT/ DRAINING LIGHT VIRIDIANA COLOR. GEN WEAKNESS NOTED/ AMBM, KNOWS TO CALL FOR ASSIST. IV TO THE RFA 20G INTACT AND PATENT/ AND IV TO THE LFA REMOVED, CATHETHER TIP INTACT. CALL LIGHT IN REACH. WILL CONTINUE PLAN OF CARE.
[2019-01-29 07:37] LABS: CALCIUM 8.3 mg/dL (8.5-10.1); CARBON DIOXIDE 27.3 mmol/L (21-32); CHLORIDE SERUM 104 mmol/L (98-107); CREATININE SERUM 1.2 mg/dL (0.7-1.3); GFR1 > 60 mL/min; GLUCOSE SERUM 97 mg/dL (74-106); PHOSPHOROUS 3.7 mg/dL (2.5-4.9); SODIUM SERUM 140 mmol/L (136-145)
--- NOTE | 2019-01-29 07:55 | NUR ---
PT C/O COUGH, MEDICATED PER EMAR. BEAUTY CULTURE TEACHER AT BEDSIDE. WILL CONTINUE TO MONITOR.
[2019-01-29 07:58] LABS: RED CELL DISTRIBUTION WIDTH 19.8 % (11.5-14.5)
[2019-01-29 09:13] VITALS: BP 125/48
--- NOTE | 2019-01-29 10:32 | NUR ---
ECHOCARDIOGRAM COMPLETED.
[2019-01-29 12:29] VITALS: BP 123/62
[2019-01-29 13:35] LABS: SEGMENTED NEUTROPHILS 60 % (37-75)
[2019-01-29 13:36] LABS: BAND NEUTROPHIL 3 % (0-10); MONOCYTE 18 % (0-7); MYELOCYTE 1 % (0-2); PLATELET MORPHOLOGY PLATELETS NORMAL; rbc morphology (normal/abnorm) ABNORMAL (NORMAL)
--- NOTE | 2019-01-29 14:25 | NUR ---
TOLERATED 100 % OF HIS LUNCH. DENIES ANY CP OR DISCOMFORT. FAMILY AT BEDSIDE.
[2019-01-29 16:51] VITALS: BP 110/53
--- NOTE | 2019-01-29 18:33 | NUR ---
NO ACUTE CHANGES AT THIS TIME, NO ACUTE RESP DISTRESS OR SOB NOTED. DENIES ANY CP OR DISCOMFORT. NEW IV TO THE RFA 22G INTACT AND PATENT/ HEPLOCKED. PER PT HAD ONE LARGE BM THIS AM. FOELY DRAINING AND PATENT/ TOTAL OUTPUT 900ML/HR DARK YELLOW URINE NOTED. CALL LIGHT IN REACH. BED IN LOW POSITION. WILL ENDORSE TO INCOMING RN.
--- NOTE | 2019-01-29 19:32 | NUR ---
RECEIVED PT FROM DAY SHIFT RN. PT AAOX4 DENIES CID/DIZZINESS. BREATHING EVEN AND UNLABORED ON RA WITH NO SOB NOTED. IV RFA PATENT. TELE #13 [address] AV BLOCK. PT DENIES CHEST PAIN/PRESSURE. ABD SOFT/ROUND ACTIVE BOWEL SOUNDS. DENIES ABD PAIN/N/V. F/C IN PLACE DRAINING DARK YELLOW URINE. BLE EDEMA, PALPABLE PULSES. CALL BUTTON WITHIN REACH. SAFETY PRECAUTIONS IN PLACE. WILL CONTINUE TO MONITOR.
[2019-01-29 20:41] VITALS: BP 106/48
--- NOTE | 2019-01-29 23:04 | NUR ---
PT REQUESTING COUGH MEDICATION. MEDICATED PER EMAR. CALL BUTTON WITHIN REACH. SAFETY PRECAUTIONS IN PLACE. WILL CONTINUE TO MONITOR.
--- NOTE | 2019-01-30 01:06 | NUR ---
PT RESTING. BREATHING EVEN AND UNLABORED NO SIGNS OF DISTRESS NOTED. CALL BUTTON WITHIN REACH. SAFETY PRECAUTIONS IN PLACE. WILL CONTINUE TO MONITOR.
--- NOTE | 2019-01-30 05:07 | NUR ---
PT SLEPT MOST OF THE NIGHT WITH NO SIGNS OF DISTRESS NOTED. BREATHING EVEN AND UNLABORED ON RA WITH NO SOB NOTED. IV PATENT, SL. MEDICATED PER EMAR. DENIES ANY PAIN. PT AMBULATORY. F/C IN PLACE DRAINING DARK YELLOW URINE. PT CONT TO HAVE DRY COUGH. CALL BUTTON WITHIN REACH. SAFETY PRECAUTIONS IN PLACE. WILL CONTINUE TO MONITOR AND ENDORSE CARE TO DAY SHIFT RN.
[2019-01-30 06:05] VITALS: BP 139/70
[2019-01-30 06:08] LABS: PLATELET COUNT 314 x10^3mcL (130-400)
[2019-01-30 06:10] LABS: CALCIUM 8.2 mg/dL (8.5-10.1); CARBON DIOXIDE 30.8 mmol/L (21-32); CHLORIDE SERUM 104 mmol/L (98-107); CREATININE SERUM 1.1 mg/dL (0.7-1.3); GFR1 > 60 mL/min; GLUCOSE SERUM 99 mg/dL (74-106); POTASSIUM SERUM 4.2 mmol/L (3.5-5.1); SODIUM SERUM 140 mmol/L (136-145)
[2019-01-30 07:05] LABS: RED CELL DISTRIBUTION WIDTH 19.5 % (11.5-14.5)
--- NOTE | 2019-01-30 07:30 | NUR ---
RECEIVED PT AAOX4. RESP EVEN, SHALLOW AND UNLABORED. LUNG SOUNDS DIMINISHED BILATAERALLY. PT ON R/A WITH CONTINUOUS PULSE OX IN PLACE. TELE [address] READ[address] NSR. IV CATH N/S LOCKED TO LACE. SITE WNL. NO S/S OF INFECTION NOTED. PT DENIES PAIN AT THIS TIME. CALL LIGHT WITHIN REACH. BED IN LOWEST POSTION.
--- NOTE | 2019-01-30 07:30 | NUR ---
RECEIVED PT AAOX4. RESP EVEN UNLABORED. ON R/A. TELE [address] READING NSR WITH FIRST DEGREE AV BLOCK. PT DENIES C/P AND PRESSURE. IV CATH N/S LOCKED TO RFA. SITE WNL. PT DENIES PAIN AND DISCOMFORT. CALL LIGHT WITHIN REACH. BED IN LOWEST POSITION. FALL PROTOCOL IN PLACE.
--- NOTE | 2019-01-30 07:39 | NUR ---
PT RESTING. NO SIGNS OF DISTRESS NOTED. ENDORSED CARE TO DAY SHIFT RN, ALL QUESTIONS ADDRESSED.
[2019-01-30 08:14] VITALS: BP 113/51
--- NOTE | 2019-01-30 08:55 | NUR ---
KYMBERLY DUFFY NP MET WITH PT AND DISCUSSED POC. PT WILL HAVE OUTPATIENT UROLOGIST APPT MADE FOR FOLLOW UP CARE. PT AGREED WITH POC.
--- NOTE | 2019-01-30 09:15 | NUR ---
SCHEDULED MEDS GIVEN AND TOLERATED WELL. PT ENCOURAGED TO GET UP OUT OF BED FOR ACTIVITY. PT VERBALIZED UNDERSTANDING BUT REMAINED AT BEDSIDE. DENIES PAIN AND DISCOMFORT. CALL LIGHT WITHIN REACH.
--- NOTE | 2019-01-30 12:25 | NUR ---
PT SITTING UP AT BEDSIDE EATING LUNCH. SON VISITING. RESP EVEN AND UNLABORED. NO DISTRESS NOTED. DENIES PAIN. CALL LIGHT WITHIN REACH.
[2019-01-30 12:35] VITALS: BP 113/51
[2019-01-30 13:30] LABS: BAND NEUTROPHIL 2 % (0-10); MONOCYTE 18 % (0-7); SEGMENTED NEUTROPHILS 65 % (37-75); rbc morphology (normal/abnorm) ABNORMAL (NORMAL)
[2019-01-30 13:31] LABS: PLATELET MORPHOLOGY PLATELETS NORMAL
--- NOTE | 2019-01-30 14:24 | NUR ---
PT SLEEPING COMFORTABLY. RESP EVEN AND UNLABORED. NO DISTRESS NOTED. CALL LIGHT WITHIN REACH.
--- NOTE | 2019-01-30 16:12 | NUR ---
PT IS SITTING UP IN BED WATCHING TV. RESP EVEN AND UNLABORED. NO DISTRESS NOTED. DENIES PAIN. CALL LIGHT WITHIN REACH.
--- NOTE | 2019-01-30 16:53 | NUR ---
PT GIVEN PERINEAL WIPES AND EDUCATED ON HOW TO PROVIDE BOCANEGRA CATH CARE. PT PERFOMED BOCANEGRA CARE ON SELF. CALL LIGHT WITHIN REACH.
[2019-01-30 17:25] VITALS: BP 105/60
--- NOTE | 2019-01-30 18:29 | NUR ---
PT IS AAOX4. RESP EVEN AND UNLABORED. NO DISTRESS NOTED. PT DENIES PAIN. TELE [address] READING NSR. IV CATH TO RFA PATENT, NS LOCKED. SITE WNL. NO S/S OF INFECTION NOTED. CALL LIGHT WITHIN REACH. BED IN LOWEST POSITION. WILL ENDORSE ALL CARE TO NOC RN.
--- NOTE | 2019-01-30 18:37 | NUR ---
PT IS AAOX4. RESP EVEN AND UNLABORED. NO DISTRESS NOTED. PT DENIES PAIN. TELE [address] READING NSR WITH FIRST DEGREE AV BLOCK. . IV CATH TO RFA PATENT, NS LOCKED. SITE WNL. NO S/S OF INFECTION NOTED. CALL LIGHT WITHIN REACH. BED IN LOWEST POSITION. WILL ENDORSE ALL CARE TO NOC RN.
--- NOTE | 2019-01-30 19:30 | NUR ---
RECEIVED REPORT FROM AM NURSE. PT SITTING IN BED, AAOX4, ABLE TO MAKE NEEDS KNOWN. ON TELE#13, READING 1ST DEGREE AV BLOCK. DENIES CP/PRESSURE AT THIS TIME. WEAK PEDAL PULSES, EDEMA TO BLE NOTED. LUNG SOUNDS CTA ON RA. NO SOB NOTED. C/O NONPRODUCTIVE COUGH. NO RESP DISTRESS NOTED. ABD SOFT AND ROUND. ACTIVE BS X4 QUAD. DENIES N/V/D. LAST BM 01/30/19. BOCANEGRA CATH IN PLACE, DRAINING DARK YELLOW URINE TO GRAVITY. AMBULATORY WITH WALKER. JAUNDICE SKIN AND SCLERA NOTED. IV TO RFA SL FLUSHING WELL. SITE WNL. BED AT LOWEST SETTING. SIDE RAILS X2 UP. CALL LIGHT WITHING REACH. WILL CONT TO MONITOR.
[2019-01-30 20:34] VITALS: BP 116/58
--- NOTE | 2019-01-31 00:10 | NUR ---
PT STTING UP IN BED WITH EYES CLOSED, BREATHIG EVEN AND UNLABORED ON RA. NO ACUTE DISTRESS NOTED. BED AT LOWEST SETTING. SIDE RAILS X2 UP. CALL LIGHT WITHING REACH. WILL CONT TO MONITOR.
[2019-01-31 05:43] VITALS: BP 110/48
[2019-01-31 06:33] LABS: CALCIUM 8.1 mg/dL (8.5-10.1); CARBON DIOXIDE 28.2 mmol/L (21-32); CREATININE SERUM 1.2 mg/dL (0.7-1.3); GFR1 > 60 mL/min; GLUCOSE SERUM 97 mg/dL (74-106)
--- NOTE | 2019-01-31 06:54 | NUR ---
PT SLEPT AT INTERVALS THROUGHOUT THE NIGHT, BREATHING EVEN AND UNLABORED ON RA. NO SIGNIFICANT CHANGES DURING SHIFT. NO ACUTE DISTRESS NOTED. ALL NEEDS ASSESSED AND ATTENDED TO. BED AT LOWEST SETTING. SIDE RAILS X2 UP. CALL LIGHT WITHING REACH. WILL ENDORSE CARE TO AM NURSE.
--- NOTE | 2019-01-31 07:10 | NUR ---
PATIENT LYING IN BED A&O X4, DRY PRODUCTIVE COUGH NOTED, BREATHING ON RA 97%, DENIES SOB OR CHEST PAIN AT THIS TIME. BOCANEGRA DRAINING TO GRAVITY. IV INTACT NO REDNESS OR EDEMA NOTED. ALL NEEDS ADDRESSED AT THIS TIME. CALL LIGHT WITHIN REACH WILL CONTINUE TO MONITOR.
[2019-01-31 07:39] LABS: BASOPHIL % 0.4 % (0-2); PLATELET COUNT 338 x10^3mcL (130-400)
[2019-01-31 07:40] LABS: RED CELL DISTRIBUTION WIDTH 18.7 % (11.5-14.5)
[2019-01-31 07:50] LABS: CHLORIDE SERUM 104 mmol/L (98-107); POTASSIUM SERUM 4.5 mmol/L (3.5-5.1); SODIUM SERUM 140 mmol/L (136-145)
--- NOTE | 2019-01-31 08:40 | NUR ---
PT IV INFILTRATED ON R HAND NEW IV INSERTED ON LEFT HAND PATENT AND INTACT PT TOLERATED WELL.
[2019-01-31 08:57] VITALS: BP 115/48
--- NOTE | 2019-01-31 08:59 | NUR ---
ADMINISTRATED SCHEDULED MEDS PER MAR PT TOLERATED WELL. NO ADVERSE AFFECTS NOTED. BED IN LOW POSITION CALL LIGHT WITHIN REACH WILL CONTINUE TO MONITOR.
--- NOTE | 2019-01-31 10:18 | NUR ---
SPOKE TO PT REGUARDING INITIATING BLADDER TRAINING PT REQUESTED TO WAIT TIL HE HAS A BM. WILL ESTABLISH BLADDER TRAINIG REQUESTED. ADMINISTERED FLOMAX PER MAR PT TOLERATED WELL. ALL QUESTIONS AND CONCERNS NOTED AT THIS TIME. CALL LIGHT WITHIN REACH WILL CONTINUE TO MONITOR.
[2019-01-31] MEDS ORDERED: FLO4 PO (10:24)
[2019-01-31] MEDS ORDERED: BACTRIM DS1 TAB PO (10:28)
[2019-01-31] MEDS ORDERED: COLACE100 MG PO (10:29)
[2019-01-31] MEDS ORDERED: FERROUS SULFAT325 M2 PO (10:29)
[2019-01-31] MEDS ORDERED: LASIX20 MG PO (10:38)
--- NOTE | 2019-01-31 10:47 | NUR ---
INITIATED BLADDER TRAINING PER DR ORDERS. CATHETER CLAMPED REQUESTED PT TO CALL ME WHEN URGENCY TO URINATE IS FELT. ALL NEEDS ADDRESSED AT THIS TIME. CALL LIGHT WITHIN REACH WILL CONTINUE TO MONITOR.
--- NOTE | 2019-01-31 11:46 | NUR ---
DICONTINUED THE BOCANEGRA CATHETER PER DR ORDERS. INSTRUCTED PT TO LET ME KNOW WHEN HE FEELS THE URGENCY TO GO. PT TOLERATED WELL. ALL QUESTIONS AND CONCERNS ADDRESSED AT THIS TIME. CALL LIGHT WITHIN REACH. WILL CONTINUE TO MONITOR.
[2019-01-31 12:14] VITALS: BP 122/61
--- NOTE | 2019-01-31 13:33 | NUR ---
PATIENT SITTING AT EDGE OF BED EATING LUNCH. TOLERATING DIET WELL. DENIES PAIN AT THIS TIME. ALL NEEDS ATTENDED TO AT THIS TIME. WILL CONTINUE TO MONITOR.
--- NOTE | 2019-01-31 15:05 | NUR ---
PATIENT SITTING AT EDGE OF BED WATCHING TV PT STATED ONLY I SMALL VOID SO FAR ENCOURAGE PT TO DRINK WATER. PT STATED "I DON;T WANT TOO MUCH WATER CAUSE I DON'T WANT IT TO NOT COME OUT." RECOMMENDED PT DRINK 100 ML OF WATER AN HR. PT VERBALIZED UNDERSTANDING. ALL QUESTIONS AND CONCERNS ADDRESSED AT THIS TIME. CALL LIGHT WITHIN REACH WILL CONTINUE TO MONITOR.
--- NOTE | 2019-01-31 15:31 | NUR ---
PT AMBULATING IN HALLWAY STABLE GAIT NOTED.
[2019-01-31 16:17] VITALS: BP 122/61
[2019-01-31 16:38] VITALS: BP 114/55
[2019-01-31 16:40] VITALS: BP 114/55
--- NOTE | 2019-01-31 16:42 | NUR ---
GAVE REPORT TO LINSEY AT [facility]. PT STABLE AND ALERT FOR DISCHARGE. FIRST FRONT VENTILATOR SCHEDULED FOR 1899.
--- NOTE | 2019-01-31 16:50 | NUR ---
PATIENT AMBULATING IN ROOM . GAVE DISCHARGE INSTRUCTIONS. PAPER SIGNED AND PT VERBALIZED UNDERSTANDING. DENIES ANY PAIN OR SOB AT THIS TIME. BLS PICKUP AT 1900. ALL QUESTIONS AND CONCERNS ADDRESSED AT THIS TIME WILL CONTINUE TO MONITOR.
--- NOTE | 2019-01-31 18:42 | NUR ---
PATIENT SITTING UP IN BED WATCHING TV DENIES CHEST PAIN OR PRESSURE. IV L HAND PATENT AND INTACT. BREATHING UNLABORED SP02 97% RA. ALL NEEDS ADDRESSED AT THIS TIME. WILL ENDORSE CARE TO MUSHROOM GROWER NURSE.
--- NOTE | 2019-01-31 19:39 | NUR ---
PT RECIEVED AAO SITTING ON THE BED AND WANTED TO KNOEW WHAT TIME WILL BE PICKED UP TO OTHER FACILITY,REG RESP NO SOB V/S STABLE,PT HAS HL TO THE LT HAND WITH THE SITE PATENT AND INTACT,KEPT CLEAN AND DRY TO TOUCH,MADE COMFORTABLE IN BED AND WILL CONTINUE TO MONITOR.
--- NOTE | 2019-01-31 20:23 | NUR ---
PT BEING PICKED UP BY [facility] IN STABLE CONDITION,PT BEING TRANSFER VIA [facility] TO THE OTHER FACILITY WITH ALL BELONGINGS.
== END 2019-01-31 20:20 | DRG 840 ==
LOC: ED 15:59 → DU 19:02
PROVIDERS: Student in an Organized Health Care Education/Training Program; ADMIT Internal Medicine
PROC: 30233N1 Transfusion of Nonautologous Red Blood Cells into Peripheral Vein, Percutaneous Approach (ICD-10-PCS; principal; 2019-01-27)
DX: C90.00 Multiple myeloma not having achieved remission (principal); I50.33 Acute on chronic diastolic (congestive) heart failure; J96.21 Acute and chronic respiratory failure with hypoxia; N39.0 Urinary tract infection, site not specified; Z68.41 Body mass index [BMI] 40.0-44.9, adult; D63.0 Anemia in neoplastic disease; R31.0 Gross hematuria; R73.03 Prediabetes; E05.90 Thyrotoxicosis, unspecified without thyrotoxic crisis or storm; N40.0 Benign prostatic hyperplasia without lower urinary tract symptoms; E66.9 Obesity, unspecified
CPT/HCPCS: 83880; 87804; 90658; 94150; G0378; J0696; J1940; J7040; J7060; J7620; P9016; Q0092; Q0163; Q9967